=== PATIENT | female | born 1965 | race Native Hawaiian/Other Pacific Islander ===

== ENCOUNTER → 2017-06-29 | Outpatient (CLI) | payer MEDICAID ==
--- NOTE | 2017-06-29 09:51 | CARDIOVASCULAR REPORT ---
"Cerebrovascular Exam IMPRESSIONS 1. The bilateral vertebral arteries are patent with normal antegrade flow. 2. Study suggests less than 20% stenosis involving the right internal carotid artery and the left internal carotid artery. History: Risk factors: Current tobacco use. Hypertension. Vertigo Carotid duplex study. Complete study and Doppler flow study including spectral analysis, color and dye scale imaging. Tables: Arterial flow: + +--------+--------+ |Location |V sys |V ed | + +--------+--------+ |Right CCA - proximal|58.9cm/s|17.3cm/s| + +--------+--------+ |Right CCA - distal |72.3cm/s|23.6cm/s| + +--------+--------+ |Right ECA |116cm/s |--------| + +--------+--------+ |Right ICA - proximal|68.4cm/s|32.2cm/s| + +--------+--------+ |Right ICA - mid |66.8cm/s|29.1cm/s| + +--------+--------+ |Right ICA - distal |80.1cm/s|36.1cm/s| + +--------+--------+ |Right vertebral |27.5cm/s|--------| + +--------+--------+ |Left CCA - proximal |105cm/s |40.9cm/s| + +--------+--------+ |Left CCA - distal |129cm/s |49.5cm/s| + +--------+--------+ |Left ECA |88.8cm/s|--------| + +--------+--------+ |Left ICA - proximal |75.4cm/s|24.4cm/s| + +--------+--------+ |Left ICA - mid |89.6cm/s|41.6cm/s| + +--------+--------+ |Left ICA - distal |91.1cm/s|39.3cm/s| + +--------+--------+ |Left vertebral |30.6cm/s|--------| + +--------+--------+ Velocity ratios: + + + + + + | |Right, V sys|Right, V ed|Left, V sys|Left, V ed| + + + + + + |Max ICA/dist CCA|1.11 |1.53 |0.71 |0.84 | + + + + + + (Report amended ) Electronically signed by: Gerry Solis [id number]"
--- NOTE | 2017-06-29 10:52 | RADIOLOGY REPORT PS360 ---
DIG MAMM-DX UNI-LT W/CAD COMPARISON: 08/17/2016 INDICATION: Follow-up abnormal calcifications ORDERING PHYSICIAN: EMORY CARRERA PATIENT AGE: 52 years TECHNIQUE: Standard images are performed along with mag views FINDINGS: There is average fibroglandular tissue. No malignant appearing mass or malignant appearing microcalcification is evident. Specifically, the previously noted calcifications in the upper outer quadrant are not apparent on today's exam. Benign-appearing calcifications are noted. IMPRESSION: Benign findings, no evidence of malignancy BI-RADS CATEGORY: 2_Benign RECOMMENDED FOLLOWUP: Resume screening mammogram on the right August 2017 (A letter has been sent to the patient regarding results of the study.)
--- NOTE | 2017-06-29 12:35 | RADIOLOGY REPORT PS360 ---
PROCEDURE: 2-D M-mode and color Doppler study INDICATIONS FOR THE TEST: Chest pain COPD Heart Murmur Tobacco SmokingX Palpitations Fatigue Syncope Edema HypertensionXDiabetes Mellitus Rheumatic Fever SOB CORODVA Obesity Hyperlipidemia Family History HD Additional History VERTIGO PATIENT INFORMATION HEIGHT: 64 WEIGHT:240 GENDER: Female B/P:146/83 2-D/M-MODE INTERPRETATION: 2-D MEASUREMENTS OBSERVED VALUES IN CMS Right Ventricular Dimension (RVDd) 1.6 Interventricular Septum (Thickness)(IVsd) 1.4 Left Ventricular Internal Dimensions(LVIDd) 4.0 Left Ventricular Posterior Wall (Thickness)(LVPWd) 1.0 Aortic Root 3.3 Aortic Cusp Separation 1.7 Left Atrial Dimensions (LAD) 3.6 2D 1. Left atrium is qualitatively mildly enlarged, left ventricle is normal size, there is mild concentric left ventricular hypertrophy, visually estimated ejection fraction 55% with no obvious regional wall motion abnormality, endocardial surfaces are somewhat poorly visualized. 2. The right atrium and right ventricle are normal size and contractility. 3. The aortic valve is minimally thickened and calcified. 4. The mitral and tricuspid valve leaflets are minimally thickened. 5. The pulmonic valve is poorly visualized. 6. No significant pericardial effusion noted. DOPPLER INTERROGATION: Doppler interrogation of the aortic, mitral and tricuspid valvular presence of mild mitral and tricuspid regurgitation, tricuspid and jet velocity is insufficient for calculation of the right ventricular systolic pressure, grade 1 diastolic dysfunction seen with tissue Doppler evidence of raised left atrial pressure. CONCLUSION: 1. Mildly enlarged left atrium, normal left ventricular size, mild concentric left ventricular hypertrophy, visually estimated ejection fraction 55% with no obvious regional wall motion abnormality, endocardial surfaces are poorly visualized, grade 1 diastolic dysfunction seen with tissue Doppler evidence of raised left atrial pressure. 2. Mild mitral and tricuspid regurgitation 3. No significant pericardial effusion noted.
== END ==
LOC: RT 08:30 → RAD 13:00
DX: R92.8 Other abnormal and inconclusive findings on diagnostic imaging of breast (principal); R42 Dizziness and giddiness